=== PATIENT | female | born 1990 | race Caucasian/White ===

== ENCOUNTER 2024-02-29 11:32 | Outpatient (CLI) | payer OTHER, SELFPAY ==
[2024-02-29] MEDS: LACTATED RINGERS 1,000 ML 1000 ML IV (11:40)
--- NOTE | 2024-02-29 11:47 | PM.OBTRLD ---
Visit Information Visit Information Date of evaluation: 02/29/24 On-call OB Provider: Clayton Collins Reason for Evaluation: Yes other Comments/Additional reasons for admission: 33-year-old at [place] 34 weeks presenting for dehydration in the context of nausea/vomiting and diarrhea. care received at [facility] but was directed here for IV fluid repletion by primary OB due to proximity. Endorses normal movement. Denies vaginal bleeding, cramping, contractions, leakage of fluid. Review of Systems Review of Systems ROS: Yes All systems reviewed with the patient and are negative except as otherwise documented Evaluation Evaluation Baseline heart rate: 140 Variability: Moderate (11-25) monitor accelerations: Present Monitor Decelerations: Absent Category of Tracing: Reactive Status: Category l Diagnosis, Plan/Disposition Final Diagnosis (1) Nausea/vomiting in : Status: Acute Plan/Disposition Plan: 33-year-old at [place] 34 weeks presenting for dehydration in the context of nausea/vomiting and diarrhea. care received at [facility] but was directed here by primary OB due to proximity. Received 1 L bolus LR, UA negative for ketones that would indicate significant dehydration. Patient discharged home, advised to follow up with primary OB in next week. OB Disposition: home
[2024-02-29 12:34] LABS: Appearance Urine UA CLEAR; Bilirubin Urine UA NEGATIVE (NEGATIVE); Color Urine UA YELLOW; Glucose Urine UA NEGATIVE (Negative); Ketones Urine UA NEGATIVE (NEGATIVE); Leukocyte Esterase Urine UA NEGATIVE (NEGATIVE); Nitrite Urine UA NEGATIVE (Negative); Occult Blood Urine UA NEGATIVE (Negative); Protein Urine UA NEGATIVE (Negative); Specific Gravity Urine UA 1.015 (1.000-1.035); Urobilinogen Urine UA 0.2 E.U./dL (0.2)
[2024-02-29 12:40] LABS: pH Urine UA 8.5 (4.5-8.0)
[2024-02-29 12:42] LABS: Bacteria Urine Occasional (0-1); Culture Indicated Urine Cult Not Indicated; RBC Urine 0-1/HPF (0-5/HPF); Squamous Epithelial Cell Urine 0-1 /HPF (0-5/HPF); Urine Volume 10mL (spun); WBC Urine 0-1/HPF (0-5/HPF)
== END 2024-02-29 12:35 | disposition home or self-care (01) ==
LOC: LABOR 12:03 → OB 03-01 10:12
PROVIDERS: PCP Obstetrics & Gynecology; Referring Provider Family Medicine; Visit Provider Family Medicine
DX: O26.893 Other specified pregnancy related conditions, third trimester (principal); R11.2 Nausea with vomiting, unspecified; R19.7 Diarrhea, unspecified; E86.0 Dehydration; Z3A.34 34 weeks gestation of pregnancy
CPT/HCPCS: 59025; 81001; 96360; G0378; G0379

== ENCOUNTER 2024-04-06 12:31 | Outpatient (CLI) | payer OTHER, SELFPAY | END 2024-04-06 13:20 | disposition home or self-care (01) | LOC: LABOR 12:34 → OB 04-08 12:26 | PROVIDERS: PCP Obstetrics & Gynecology; Referring Provider Obstetrics & Gynecology; Visit Provider Obstetrics & Gynecology | DX: Z03.71 Encounter for suspected problem with amniotic cavity and membrane ruled out (principal); O34.219 Maternal care for unspecified type scar from previous cesarean delivery; Z3A.39 39 weeks gestation of pregnancy | CPT/HCPCS: 59025; 84112; G0378; G0379 ==

== ENCOUNTER 2024-12-09 07:21 | Emergency (ER) | payer OTHER, SELFPAY ==
[2024-12-09 07:29] VITALS: BP 96/63; PULSE 76; RESP 20; TEMP 36.3; O2SAT 95; BMI 25.1
[2024-12-09] MEDS: ONDANSETRON 4 MG/2 ML INJ IV (07:40)
--- NOTE | 2024-12-09 08:25 | ED_ITS ---
HPI - Headache General Chief Complaint: Headache Stated Complaint: Cluster headaches , need IV meds Time Seen by Provider: 12/09/24 08:22 Mode of arrival: Ambulatory History of Present Illness HPI Narrative: Patient is a 34-year-old female history of headaches presenting today with a headache. She reports it typically she takes sumatriptan at home however she is out of the medication. This headache woke her up suddenly from this morning. She has been nauseous. It feels like a typical headache for her. She would normally does take her medication at home but she is out of it and recently moved to the area and does not have a new neurologist. No fever no chills. Related Data Home Medications ?Medication ?Instructions ?Recorded ?Confirmed oxycodone 5 mg tablet 5 mg PO Q4H PRN 10/29/2404/23 Previous Rx's ?Medication ?Instructions ?Recorded bupropion HCl 300 mg 24 hr tablet, 300 mg PO QAM #30 t abs 09/19/24 extended release (Wellbutrin XL) hydroxyzine HCl 25 mg tablet 12.5 - 25 mg (0.5 - 1 x 2 5 mg) PO 10/29/24 TID PRN anxiety #30 tabs sertraline 100 mg tablet 150 mg (1.5 x 100 mg) PO DAVID LY #45 10/29/24 tabs sumatriptan succinate 6 mg/0.5 mL 6 mg (0.5 mL) SUBCUT Q1-4H PRN 12/09/24 subcutaneous pen injector migraine headache #1 mL Allergies Allergy/AdvReac Type Severity Reaction Status Date / Time seasonal allergies Allergy Mild itchy Uncoded 12/09/24 07:29 eyes, runny nose Patient History Surgical History (Updated 08/13/24 @ 10:02 by Dotty Moe MD) History of delivery History of cholecystectomy Social History Smoking Status: Former smoker Smoking Status: Former smoker Exam Initial Vital Signs Initial Vital Signs: Vital Signs Temperature 97.3 F L 12/09/24 07:29 Pulse Rate 76 12/09/24 07:29 Respiratory Rate 20 12/09/24 07:29 Blood Pressure 96/63 12/09/24 07:29 Pulse Oximetry 95 12/09/24 07:29 Oxygen Delivery Method Room Air 12/09/24 07:29 GENERAL: Alert 34-year-old female appears to not feel well and in no acute distress. HEENT: Head atraumatic,EOMI, pupils reactive, face symmetric, moist mucous membranes CARDIOVASCULAR: Regular rate and rhythm without murmurs, rubs or gallops. RESPIRATORY: Breath sounds equal bilaterally, no wheezes rales or rhonchi. ABDOMEN: Soft, nontender. Normoactive bowel sounds all 4 quadrants. No guarding or rebound. EXTREMITIES: Normal range of motion, no clubbing or edema. Neurovascularly inta ct NEUROLOGICAL: Alert and oriented x4.Normal gait and speech. Cranial nerves II through XII grossly intact. SKIN: Warm, dry, no laceration, no petechiae, no rashes or lesions. Course Orders Ordered: Discontinued Medications Sodium Chloride (Normal Saline 0.9%) 1,000 mls @ 1,000 mls/hr IV BOLUS ONE Stop: 12/09/24 09:58 Last Infusion: 12/09/24 09:43 Dose: Infused Documented By: Admin: 12/09/24 09:05 Dose: 1,000 mls/hr Documented By: CAM Ketorolac Tromethamine (Ketorolac 30 Mg/Ml Vial) 15 mg IV NOW ONE Stop: 12/09/24 08:30 Last Admin: 12/09/24 09:06 Dose: 15 mg Documented By: CAM Metoclopramide HCl (Metoclopramide 10 Mg/2 Ml Inj) 10 mg IV NOW ONE Stop: 12/09/24 09:00 Last Admin: 12/09/24 09:05 Dose: 10 mg Documented By: CAM Ondansetron HCl (Ondansetron 4 Mg/2 Ml Inj) 4 mg IV NOW ONE Stop: 12/09/24 07:35 Last Admin: 12/09/24 07:40 Dose: 4 mg Documented By: Sumatriptan Succinate (Sumatriptan 6 Mg/0.5 Ml Vial) 6 mg SUBCUT NOW ONE Stop: 12/09/24 08:30 Last Admin: 12/09/24 09:06 Dose: 6 mg Documented By: [facility] Vital Signs Vital signs: Vital Signs - 8 hr 12/09/24 07:29 12/09/24 09:43 Temperature 97.3 F L Pulse Rate 76 68 Respiratory Rate 20 12 Blood Pressure 96/63 114/07 L Pulse Oximetry 95 98 Oxygen Delivery Method Room Air Room Air MDM - Headache MDM Narrative Medical decision making narrative: Patient 34-year-old female history of headaches presenting today with a headache. She received sumatriptan and Toradol here in the ED along with Zofran and Reglan. Overall feeling better No need for blood work no concern for meningitis or intracranial hemorrhage this is a typical headache for her. Discharge Plan Departure Patient Disposition: Home Clinical Impression: Headache Instructions: DI for Headache Activity Restrictions/Additional Instructions: *You have been diagnosed with headache *What to do: At this time try and get in with Neurology *Continue to take medications as directed Sumatriptan as needed *Follow up with your primary care provider in 2-3 days or call [phone] *Return to ER if you should have worsening headache numbness tingling vomiting [or] any new, worsening or concerning symptoms Prescriptions: New sumatriptan succinate 6 mg/0.5 mL pen injector 6 mg SUBCUT Q1-4H PRN (Reason: migraine headache) Qty: 1 2RF No Action bupropion HCl [Wellbutrin XL] 300 mg tablet extended release 24 hr 300 mg PO QAM Qty: 30 2RF oxycodone 5 mg tablet 5 mg PO Q4H PRN sertraline 100 mg tablet 150 mg PO DAILY Qty: 45 2RF hydroxyzine HCl 25 mg tablet 12.5 - 25 mg PO TID PRN (Reason: anxiety) Qty: 30 0RF Referrals: Dotty Moe MD [Primary Care Provider, Family Practice] Stand Alone Forms: Patient Portal/API
[2024-12-09] MEDS: SODIUM CHLORIDE 0.9% 1,000 ML 1000 ML IV (09:05)
[2024-12-09] MEDS: METOCLOPRAMIDE 10 MG/2 ML INJ IV (09:05)
[2024-12-09] MEDS: SUMAtriptan 6 MG/0.5 ML VIAL SUBCUT (09:06)
[2024-12-09] MEDS: KETOROLAC 30 MG/ML VIAL 15 MG IV (09:06)
[2024-12-09 09:43] VITALS: BP 114/07; PULSE 68; RESP 12; O2SAT 98
== END 2024-12-09 09:44 | disposition home or self-care (01) ==
PROVIDERS: Emergency Provider Emergency Medicine; PCP Family Medicine
DX: R51.9 Headache, unspecified (principal); R11.0 Nausea
CPT/HCPCS: 36415; 96361; 96372; 96374; 96375; 99284; J1885; J2405; J2765; J3030; J7030

== ENCOUNTER 2024-12-23 10:55 | Emergency (ER) | payer OTHER, SELFPAY ==
[2024-12-23] VITALS (7 sets, daily range): BP systolic 98–117; BP diastolic 54–70; PULSE 53–75; RESP 18; TEMP 36.6; O2SAT 97–100; BMI 24.4
[2024-12-23 11:29] LABS: Add Manual Diff / Slide Review NO; Hematocrit 42.3 % (36-46); Hemoglobin 14.3 g/dL (12.0-16.0); Lymphocytes Absolute Auto 1600 /uL (1100-4500); Mean Corpuscular HGB Conc 33.8 % (30-36); Mean Corpuscular Hemoglobin 31.3 PG (26-34); Mean Corpuscular Volume 92.5 fL (80-100); Platelet Count 192 X10^3/uL (150-400)
--- NOTE | 2024-12-23 11:31 | ED_ITS ---
HPI - Headache General Chief Complaint: Headache Stated Complaint: Cluster Migraine Time Seen by Provider: 12/23/24 11:24 Mode of arrival: EMS History of Present Illness HPI Narrative: Ms. Wei is a pleasant 34-year-old female with a past medical history of cluster migraines, MDD, GERD who presents to the emergency department via EMS for breakthrough migraine headache that started around 2am this morning. Patient is accompanied by her and son. She states that she deals with left-sided cluster migraines very frequently, these are typically treated well with sumatriptan however she moved to this area a year ago and does not currently have an new neurology appointment until January. She ran out of her home sumatriptan. She came to the ER a few weeks ago when is provided with refills however the pharmacy will not let her refill this medication until December 31. This morning on 2-3 a.m. she developed a left-sided headache that feels identical to prior cluster migraines. No precipitating trauma or flu-like illness. She is having sensitivity to light and sounds which is typical for her. She is also having nausea and vomiting. She called EMS to bring her to the ER and she received 1.25 mg of droperidol, 12.5 mg Benadryl, 100 mcg of fentanyl. She is starting to feel better however she is still having nausea and vomiting. Denies abdominal pain, chest pain, shortness of breath. Related Data Home Medications ?Medication ?Instructions ?Recorded ?Confirmed oxycodone 5 mg tablet 5 mg PO Q4H PRN 10/29/2404/23 Previous Rx's ?Medication ?Instructions ?Recorded hydroxyzine HCl 25 mg tablet 12.5 - 25 mg (0.5 - 1 x 2 5 mg) PO 10/29/24 TID PRN anxiety #30 tabs sertraline 100 mg tablet 150 mg (1.5 x 100 mg) PO DAVID LY #45 10/29/24 tabs sumatriptan succinate 6 mg/0.5 mL 6 mg (0.5 mL) SUBCUT Q1-4H PRN 12/09/24 subcutaneous pen injector migraine headache #1 mL ondansetron 4 mg disintegrating 4 mg PO Q8H PRN nausea and 12/23/24 tablet vomiting #14 tabs sumatriptan succinate 6 mg/0.5 mL 6 mg (0.5 mL) SUBCUT Q1-4H PRN 12/23/24 subcutaneous pen injector migraine headache #3 mL bupropion HCl 300 mg 24 hr tablet, 300 mg PO QAM #30 t abs 12/24/24 extended release Allergies Allergy/AdvReac Type Severity Reaction Status Date / Time seasonal allergies Allergy Mild itchy Uncoded 12/23/24 11:13 eyes, runny nose Review of Systems Review of Systems ROS Unobtainable: All systems reviewed & are unremarkable except as noted in HPI and below Patient History Surgical History History of delivery History of cholecystectomy Social History Smoking Status: Former smoker Smoking Status: Former smoker Exam Narrative Exam Narrative: GENERAL: 34 year old patient appears stated age. Well-developed patient, visibly uncomfortable, in no acute distress, sitting up in stretcher, scant clear emesis during exam. HEAD: Atraumatic. Normocephalic. EYES: PERRL. Extraocular motions intact. No scleral icterus. No injection or drainage. NECK: Trachea midline. Cervical ROM intact. No midlien tenderness. CARDIOVASCULAR: Regular rate and rhythm. RESPIRATORY: ?Nonlabored respirations. ?Speaking in clear, full sentences. ?Clear to auscultation. Breath sounds equal bilaterally. No wheezes, rales, or rhonchi. ? GASTROINTESTINAL: Abdomen soft, non-tender, nondistended. BACK: Nontender without deformity or crepitance. No flank tenderness. NEURO: AOx3. ?Clear speech. ?No facial asymmetry. Moves all 4 extremities appropriately. SKIN: No rash or erythema of visible areas Initial Vital Signs Initial Vital Signs: Vital Signs Temperature 97.9 F 12/23/24 11:13 Pulse Rate 55 L 12/23/24 11:13 Respiratory Rate 18 12/23/24 11:13 Blood Pressure 98/54 L 12/23/24 11:13 Pulse Oximetry 98 12/23/24 11:13 Oxygen Delivery Method Room Air 12/23/24 11:13 Course Orders Ordered: Discontinued Medications Dexamethasone (Dexamethasone 10 Mg/Ml Vial) 10 mg IV NOW ONE Stop: 12/23/24 12:32 Last Admin: 12/23/24 12:43 Dose: 10 mg Documented By: DARSHAN Sodium Chloride (Normal Saline 0.9%) 1,000 mls @ 1,000 mls/hr IV BOLUS ONE Stop: 12/23/24 12:23 Last Infusion: 12/23/24 12:43 Dose: Infused Documented By: Admin: 12/23/24 11:51 Dose: 1,000 mls/hr Documented By: DARSHAN Ketorolac Tromethamine (Ketorolac 30 Mg/Ml Vial) 15 mg IV NOW ONE Stop: 12/23/24 11:39 Last Admin: 12/23/24 11:52 Dose: 15 mg Documented By: DARSHAN Metoclopramide HCl (Metoclopramide 10 Mg/2 Ml Inj) 10 mg IV NOW ONE Stop: 12/23/24 11:39 Last Admin: 12/23/24 11:52 Dose: 10 mg Documented By: DARSHAN Sumatriptan Succinate (Sumatriptan 6 Mg/0.5 Ml Vial) 6 mg SUBCUT NOW ONE Stop: 12/23/24 11:39 Last Admin: 12/23/24 11:51 Dose: 6 mg Documented By: DARSHAN Vital Signs Vital signs: Vital Signs - 8 hr 12/23/24 11:13 12/23/24 11:27 12/23/24 11:30 Temperature 97.9 F Pulse Rate 55 L 68 53 L Respiratory Rate 18 Blood Pressure 98/54 L Pulse Oximetry 98 99 97 Oxygen Delivery Method Room Air 12/23/24 11:31 12/23/24 11:31 12/23/24 12:00 Temperature Pulse Rate 53 L 70 Respiratory Rate Blood Pressure 117/63 Pulse Oximetry 99 99 Oxygen Delivery Method 12/23/24 12:30 12/23/24 12:31 12/23/24 12:31 Temperature Pulse Rate 75 71 Respiratory Rate Blood Pressure 114/70 Pulse Oximetry 100 100 Oxygen Delivery Method MDM - Headache Medical Records Attestation: I reviewed the patient's medical records. Lab Data 12/23/24 11:02 12/23/24 11:02 Labs: Lab Results 12/23/24 Range/Units 11:02 WBC 9.8 (4.5-11.0) X10^3/uL RBC 4.58 (4.0-5.2) X10^6/uL Hgb 14.3 (12.0-16.0) g/dL Hct 42.3 (36-46) % MCV 92.5 (80-100) fL MCH 31.3 (26-34) PG MCHC 33.8 (30-36) % RDW 13.2 (11.6-14.8) % Plt Count 192 (150-400) X10^3/uL Neut % (Auto) 73.5 (50-75) % Lymph % (Auto) 16.6 L (25-40) % [place] % (Auto) 7.5 (3-14) % Eos % (Auto) 1.6 L (2-4) % Baso % (Auto) 0.8 (0-2) % Neut # (Auto) 7200 H (7205-8245) /uL Lymph # (Auto) 1600 (5134-0605) /uL [place] # (Auto) 700 (0-900) /uL Eos # (Auto) 200 (0-450) /uL Baso # (Auto) 100 (0-100) /uL Sodium 140 (137-145) mmol/L Potassium 4.0 (3.4-5.1) mmol/L Chloride 113 H (98-107) mmol/L Carbon Dioxide 13 L (22-32) mmol/L BUN 15 (7-17) mg/dL Creatinine 0.79 (0.52-1.04) mg/dL Estimated GFR > 60 (>60) mL/min BUN/Creatinine Ratio 19.0 (6-22) Glucose 147 H (70-99) mg/dL Calcium 9.4 (8.4-10.2) mg/dL Magnesium 2.1 (1.6-2.3) mg/dL Total Bilirubin 0.7 (0.2-1.3) mg/dL AST 24 (14-36) IU/L ALT 14 (<35) IU/L Alkaline Phosphatase 62 (38-126) U/L Total Protein 7.6 (6.3-8.2) g/dL Albumin 4.7 (3.5-5.0) g/dL Globulin 2.9 (1.7-4.1) g/dL Albumin/Globulin Ratio 1.6 (1.0-2.8) MDM Narrative Medical decision making narrative: 34-year-old female with a past medical history of cluster migraines, MDD, GERD who presents to the emergency department via EMS for breakthrough migraine headache that started around 2am this morning. Differential diagnosis includes but is not limited to breakthrough migraine, cluster migraine, tension headache, viral syndrome, electrolyte derangement, etc. On exam patient is in no acute distress but she is visibly uncomfortable, scant amount of clear emesis during exam. Vital signs reveal BP 92/54, pulse 55, respiratory rate 18, temperature 97.9?, O2 sat 98 on room air. She received droperidol, Benadryl, fentanyl via EMS and feels slightly better but still nauseous. She describes this migraine as identical to priors and typically it resolves with sumatriptan however she ran out of this medication and is unable to see Neurology until January. No fevers, rashes, neck rigidity, head trauma. We will treat with IV fluids, Reglan, Toradol and subcutaneous sumatriptan. Patient feels much improved after ED treatment, tolerating p.o., ready to go home. Labs reveal calculated anion gap of 12.3, carbon dioxide is low at 13, normal sodium 140, potassium 4.0, BUN 15 creatinine 0.79. Normal WBC count 9.8. Hemoglobin 14.3. Patient was treated with 10 mg dexamethasone to prevent rebound migraine. I did refill her sumatriptan autoinjector in addition to Zofran. Discussed proper home care of migraine in addition to strict ED return precautions. Patient verbalized understanding of all information agreeable with the plan, blood pressure improved she feels well, tolerating p.o., stable for discharge home with her . Discharge Plan Departure Patient Disposition: Home Clinical Impression: Migraine Qualifiers: Migraine type: unspecified Status migrainosus presence: without status migrainosus Intractability: not intractable Qualified Code(s): G43.909 - Migraine, unspecified, not intractable, without status migrainosus Instructions: DI for Migraine Activity Restrictions/Additional Instructions: Dear Ms. Wei, Thank you for coming to the emergency room. Today you were evaluated for a breakthrough migraine headache and received intravenous treatment in the ED. I have sent a prescription of your sumatriptan to [facility] in [place] in addition to some Zofran. Please rest, increase hydration, use ibuprofen/acetaminophen/prescription medications as needed for breakthrough symptoms, or return to the ER with any new worsening or concerning symptoms. Please follow up with the primary care doctor and Neurology when able. Please follow up with your primary care doctor within the next 2-3 days for ER follow-up. (If you do not have a PCP you can call [phone]. ?to schedule an appointment with an [facility] Primary Care Provider) IF YOU DEVELOP ANY NEW OR WORSENING SYMPTOMS, RETURN TO THE ER! Please read the attached instructions, they highlight more specific treatments and interventions for you at home. Thank you for letting me participate in your care, Mimi Harman PA-C Prescriptions: New sumatriptan succinate 6 mg/0.5 mL pen injector 6 mg SUBCUT Q1-4H PRN (Reason: migraine headache) Qty: 3 0RF ondansetron 4 mg tablet,disintegrating 4 mg PO Q8H PRN (Reason: nausea and vomiting) Qty: 14 0RF No Action oxycodone 5 mg tablet 5 mg PO Q4H PRN sertraline 100 mg tablet 150 mg PO DAILY Qty: 45 2RF hydroxyzine HCl 25 mg tablet 12.5 - 25 mg PO TID PRN (Reason: anxiety) Qty: 30 0RF bupropion HCl 300 mg tablet extended release 24 hr 300 mg PO QAM Qty: 30 2RF sumatriptan succinate 6 mg/0.5 mL pen injector 6 mg SUBCUT Q1-4H PRN (Reason: migraine headache) Qty: 1 2RF Referrals: Dotty Moe MD [Primary Care Provider, Family Practice] Stand Alone Forms: Patient Portal/API, Work Release Note
[2024-12-23 11:35] LABS: Alanine Aminotransferase 14 IU/L (<35); Albumin 4.7 g/dL (3.5-5.0); Albumin Globulin Ratio 1.6 (1.0-2.8); Alkaline Phosphatase 62 U/L (38-126); Blood Urea Nitrogen 15 mg/dL (7-17); Calcium 9.4 mg/dL (8.4-10.2); Carbon Dioxide 13 mmol/L (22-32); Chloride 113 mmol/L (98-107); Estimated Glomerular Filt Rate > 60 mL/min (>60); Globulin 2.9 g/dL (1.7-4.1); Glucose 147 mg/dL (70-99); HEMOLYSIS 21 (0-50); Potassium 4.0 mmol/L (3.4-5.1); Sodium 140 mmol/L (137-145); Total Protein 7.6 g/dL (6.3-8.2)
[2024-12-23 11:36] LABS: Magnesium 2.1 mg/dL (1.6-2.3)
--- NOTE | 2024-12-23 11:36 | PC.NURSE ---
Assumed care. Pt given 100mcg of Fentanyl, 1.25 droperidol, and 12.5 benadryl in route to hospital. Pt alert but sleepy at this time, states headache has resolved. Placed on monitor with ETCO2 monitor. Alarms on and verified.
[2024-12-23] MEDS: SODIUM CHLORIDE 0.9% 1,000 ML 1000 ML IV (11:51)
[2024-12-23] MEDS: SUMAtriptan 6 MG/0.5 ML VIAL SUBCUT (11:51)
[2024-12-23] MEDS: METOCLOPRAMIDE 10 MG/2 ML INJ IV (11:52)
[2024-12-23] MEDS: KETOROLAC 30 MG/ML VIAL 15 MG IV (11:52)
--- NOTE | 2024-12-23 12:20 | PC.NURSE ---
Pt awake, alert and states she feels better. No concern for respiratory depression at this time.
== END 2024-12-23 12:46 | disposition home or self-care (01) ==
PROVIDERS: Emergency Provider Physician Assistant; PCP Family Medicine
DX: G43.909 Migraine, unspecified, not intractable, without status migrainosus (principal)
CPT/HCPCS: 80053; 83735; 85025; 96361; 96372; 96374; 96375; 99283; 99284; J1100; J1885; J2765; J3030; J7030